=== PATIENT | female | born 2005 | race Caucasian/White ===

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

== ENCOUNTER 2023-02-28 23:08 | Emergency (ER) | payer MEDICAID ==
[~2023-02-28] VITALS: Ht 157.5 cm; Wt 65.6 kg
[~2023-02-28 23:08] MED LIST: HYDR50TA55 MT
[2023-02-28 23:35] VITALS: BP 125/76; PULSE 91; RESP 18; TEMP 99; O2SAT 99
[2023-03-01 00:18] LABS: CHLORIDE 109 mEq/L (98-107)
[2023-03-01 01:16] LABS: BASOPHILS % 0.8 % (0.0-2.0); EOSINOPHILS % 3.6 % (0.0-5.0); HEMATOCRIT. 38.2 % (36.0-48.0); LYMPHOCYTES % 25.5 % (20.0-50.0); MEAN CORPUSCULAR HEMOGLOBIN 28.3 pg (28.0-32.0); MEAN CORPUSCULAR VOLUME 82.9 fL (81.0-99.0); MEAN PLATELET VOLUME 10.3 fl (7.4-10.4); MONOCYTES % 9.5 % (2.0-8.0); NEUTROPHILS % 60.6 % (40.0-76.0); PLATELET 256 x1000/uL (130-400); RED CELL DISTRIBUTION WIDTH 13.8 % (11.6-14.6)
[2023-03-01 03:05] LABS: HCG SCREEN NEGATIVE
[2023-03-01 03:08] LABS: ETHANOL BLOOD < 10 mg/dL (-10)
[2023-03-01 04:43] LABS: CLARITY URINE CLEAR (CLEAR); COLOR URINE YELLOW (YELLOW); KETONES URINE NEGATIVE (NEGATIVE); LEUKOCYTE ESTERASE URINE NEGATIVE (NEGATIVE); NITRITE URINE NEGATIVE (NEGATIVE); OCCULT BLOOD URINE NEGATIVE (NEGATIVE); PROTEIN URINE NEGATIVE (NEGATIVE); SPECIFIC GRAVITY URINE 1.027 (1.005-1.030)
[2023-03-01 05:05] LABS: *AMPHETAMINES SCREEN URINE NEGATIVE (NEGATIVE); *BARBITURATES SCREEN URINE NEGATIVE (NEGATIVE); *BENZODIAZEPINES SCREEN URINE NEGATIVE (NEGATIVE); *COCAINE SCREEN URINE NEGATIVE (NEGATIVE); CANNABINOID URINE SCREEN NEGATIVE (NEGATIVE); METHADONE URINE SCREEN NEGATIVE (NEGATIVE); OPIATES URINE SCREEN NEGATIVE (NEGATIVE); PHENCYCLIDINE URINE SCREEN NEGATIVE (NEGATIVE)
== END 2023-03-01 05:04 | disposition left against medical advice (07) ==
LOC: ER 23:22
DX: R10.84 Generalized abdominal pain (principal); R11.2 Nausea with vomiting, unspecified; F41.9 Anxiety disorder, unspecified
CPT/HCPCS: 36415; 80053; 80305; 80320; 81003; 81025; 84703; 85025; 99283; G0480

== ENCOUNTER 2023-06-21 17:42 | Emergency (ER) | payer OTHER ==
[~2023-06-21] VITALS: Ht 157.5 cm; Wt 59.0 kg
[2023-06-21 17:58] VITALS: O2SAT 99
[2023-06-21 18:30] LABS: BASOPHILS % 0.7 % (0.0-2.0); EOSINOPHILS % 3.1 % (0.0-5.0); HEMATOCRIT. 40.8 % (36.0-48.0); HEMOGLOBIN. 13.7 g/dL (12.0-16.0); LYMPHOCYTES % 25.7 % (20.0-50.0); MEAN CORPUSCULAR HEMOGLOBIN 27.1 pg (28.0-32.0); MEAN CORPUSCULAR HGB CONC 33.7 g/dL (31.0-37.0); MEAN CORPUSCULAR VOLUME 80.4 fL (81.0-99.0); MEAN PLATELET VOLUME 9.4 fl (7.4-10.4); MONOCYTES % 10.6 % (2.0-8.0); NEUTROPHILS % 59.9 % (40.0-76.0); PLATELET 320 x1000/uL (130-400); RED BLOOD CELL COUNT 5.08 mill/uL (4.2-5.4); RED CELL DISTRIBUTION WIDTH 13.5 % (11.6-14.6); WHITE BLOOD COUNT 8.8 x1000/uL (4.5-11.0)
[2023-06-21] MEDS ORDERED: ONDANSETRON HCL 4MG TABLET PO ONE (18:30)
[2023-06-21 18:38] LABS: HCG SCREEN NEGATIVE
[2023-06-21 18:40] LABS: CALCIUM 8.5 mg/dL (8.5-10.1); INDEX HEMOLYSI 1 (1-3); INDEX ICTERIC 1 (1-4); INDEX LIPEMIC 1 (1-3)
[2023-06-21 19:07] LABS: CHLORIDE 109 mEq/L (98-107); POTASSIUM 3.5 mEq/L (3.5-5.1); SODIUM 140 mEq/L (136-145)
[2023-06-21 19:13] LABS: ALANINE AMINOTRANSFERASE 15 IU/L (13-61); ALBUMIN 4.2 g/dL (3.4-5.0); ASPARTATE AMINOTRANSFERASE 10 IU/L (15-37); BILIRUBIN TOTAL 0.6 mg/dL (0.1-1.0); CARBON DIOXIDE 25 mEq/L (21-32); CREATININE 0.8 mg/dL (0.6-1.3); GLUCOSE 86 mg/dL (70-105); PROTEIN TOTAL 8.1 g/dL (6.0-8.3); UREA NITROGEN BLOOD 9 mg/dL (7-21)
[2023-06-21] MEDS ORDERED: ONDA4TAB11 PO (20:39)
[2023-06-21] MEDS ORDERED: ONDANSETRON HCL 4MG TABLET PO NR (21:15)
[2023-06-21 21:28] VITALS: BP 122/78; PULSE 92; RESP 16; TEMP 98
== END 2023-06-21 21:28 | disposition home or self-care (01) ==
LOC: ER 18:25
DX: R10.13 Epigastric pain (principal); R11.2 Nausea with vomiting, unspecified; R07.89 Other chest pain; F41.9 Anxiety disorder, unspecified
CPT/HCPCS: 99285; 71045; 80053; 81025; 84703; 83690; 85025; 36415; 93005; Q0162

== ENCOUNTER 2023-08-18 15:34 | Emergency (ER) | payer OTHER ==
[~2023-08-18] VITALS: Ht 162.6 cm; Wt 58.0 kg
[~2023-08-18 15:34] MED LIST changes: +ONDA4TAB11 PO
[2023-08-18 15:47] VITALS: O2SAT 100
[2023-08-18] MEDS ORDERED: ACETAMINOPHEN 500MG TABLET PO ONE (16:45)
[2023-08-18 17:03] LABS: EOSINOPHILS % 2.1 % (0.0-5.0); HEMATOCRIT. 41.3 % (36.0-48.0); HEMOGLOBIN. 13.3 g/dL (12.0-16.0); LYMPHOCYTES % 22.1 % (20.0-50.0); MEAN CORPUSCULAR HEMOGLOBIN 26.9 pg (28.0-32.0); MEAN CORPUSCULAR HGB CONC 32.3 g/dL (31.0-37.0); MEAN CORPUSCULAR VOLUME 83.3 fL (81.0-99.0); MEAN PLATELET VOLUME 9.4 fl (7.4-10.4); MONOCYTES % 10.2 % (2.0-8.0); NEUTROPHILS % 64.6 % (40.0-76.0); PLATELET 300 x1000/uL (130-400); RED BLOOD CELL COUNT 4.96 mill/uL (4.2-5.4); RED CELL DISTRIBUTION WIDTH 13.4 % (11.6-14.6)
[2023-08-18 17:06] LABS: HCG SCREEN NEGATIVE
[2023-08-18 17:11] LABS: ALANINE AMINOTRANSFERASE < 7 IU/L (10-49); ALBUMIN 4.4 g/dL (3.2-4.8); ASPARTATE AMINOTRANSFERASE 13 IU/L (<34); BILIRUBIN TOTAL 0.5 mg/dL (0.1-1.0); CALCIUM 9.2 mg/dL (8.7-10.4); CARBON DIOXIDE 26 mEq/L (21-32); CHLORIDE 110 mEq/L (98-107); CREATININE 0.7 mg/dL (0.6-1.0); GLUCOSE 89 mg/dL (70-105); POTASSIUM 3.9 mEq/L (3.5-5.1); PROTEIN TOTAL 7.9 g/dL (6.0-8.3); SODIUM 140 mEq/L (136-145); UREA NITROGEN BLOOD 9 mg/dL (9-23)
[2023-08-18 18:44] VITALS: BP 112/73; PULSE 90; RESP 20; TEMP 98.1
[2023-08-18] MEDS ORDERED: ACETAMINOPHEN 500MG TABLET PO NR (18:45)
== END 2023-08-18 18:47 | disposition home or self-care (01) ==
LOC: ER 15:34
DX: R10.9 Unspecified abdominal pain (principal); R11.2 Nausea with vomiting, unspecified; F41.9 Anxiety disorder, unspecified
CPT/HCPCS: 36415; 76705; 80053; 81025; 84703; 85025; 99284

== ENCOUNTER 2023-12-05 23:37 | Emergency (ER) | payer OTHER ==
[~2023-12-05] VITALS: Ht 157.5 cm; Wt 64.0 kg
[2023-12-05 23:48] VITALS: TEMP 100; O2SAT 100
[2023-12-06] MEDS ORDERED: AMOX-494 MT (03:02)
[2023-12-06] MEDS: DEXAMETHASONE 2MG TABLET PO NR (03:17)
[2023-12-06 03:18] VITALS: BP 106/57; PULSE 70; RESP 12
[2023-12-06] MEDS: IBUPROFEN 600MG TABLET PO STA (03:18)
[2023-12-06] MEDS: DEXAMETHASONE 1MG TABLET PO ONE (03:31)
== END 2023-12-06 03:36 | disposition home or self-care (01) ==
LOC: ER 23:37
DX: J02.9 Acute pharyngitis, unspecified (principal); H92.01 Otalgia, right ear; R05.9 Cough, unspecified
CPT/HCPCS: 99283; 81025; J8540

== ENCOUNTER 2024-02-29 18:10 | Emergency (ER) | payer OTHER ==
[~2024-02-29] VITALS: Ht 165.1 cm; Wt 61.0 kg
[~2024-02-29 18:10] MED LIST changes: +AMOX-494 MT
[2024-02-29 18:26] VITALS: BP 107/70; PULSE 92; RESP 20; TEMP 98.2; O2SAT 100
[2024-02-29 18:57] LABS: BASOPHILS % 0.3 % (0.0-2.0); EOSINOPHILS % 1.6 % (0.0-5.0); HEMATOCRIT. 40.4 % (36.0-48.0); HEMOGLOBIN. 13.7 g/dL (12.0-16.0); LYMPHOCYTES % 9.2 % (20.0-50.0); MEAN CORPUSCULAR HEMOGLOBIN 27.6 pg (28.0-32.0); MEAN CORPUSCULAR HGB CONC 33.8 g/dL (31.0-37.0); MEAN CORPUSCULAR VOLUME 81.6 fL (81.0-99.0); MEAN PLATELET VOLUME 8.9 fl (7.4-10.4); MONOCYTES % 6.1 % (2.0-8.0); NEUTROPHILS % 82.8 % (40.0-76.0); PLATELET 261 x1000/uL (130-400); RED BLOOD CELL COUNT 4.95 mill/uL (4.2-5.4); RED CELL DISTRIBUTION WIDTH 13.8 % (11.6-14.6); WHITE BLOOD COUNT 7.4 x1000/uL (4.5-11.0)
[2024-02-29 19:03] LABS: CHLORIDE 104 mEq/L (98-107); POTASSIUM 3.2 mEq/L (3.5-5.1); SODIUM 138 mEq/L (136-145)
[2024-02-29 19:04] LABS: CARBON DIOXIDE 26 mEq/L (21-32)
[2024-02-29 19:05] LABS: CALCIUM 9.3 mg/dL (8.7-10.4)
[2024-02-29 19:09] LABS: CREATININE 0.7 mg/dL (0.6-1.0)
[2024-02-29 19:10] LABS: GLUCOSE 91 mg/dL (70-105); UREA NITROGEN BLOOD 9 mg/dL (9-23)
[2024-02-29 19:11] LABS: ALANINE AMINOTRANSFERASE 10 IU/L (10-49); ALBUMIN 4.9 g/dL (3.2-4.8); ASPARTATE AMINOTRANSFERASE 14 IU/L (<34)
[2024-02-29 19:12] LABS: BILIRUBIN DIRECT 0.5 mg/dL (<=3.0); BILIRUBIN TOTAL 1.2 mg/dL (0.1-1.0); PROTEIN TOTAL 7.6 g/dL (6.0-8.3)
[2024-02-29] MEDS ORDERED: ONDA4TAB50 PO (19:49)
[2024-02-29] MEDS: ONDANSETRON HCL 4MG TABLET PO ONE (20:10)
== END 2024-02-29 20:15 | disposition home or self-care (01) ==
LOC: ER 18:19
DX: R11.2 Nausea with vomiting, unspecified (principal); R10.84 Generalized abdominal pain; F41.9 Anxiety disorder, unspecified
CPT/HCPCS: 36415; 71045; 80048; 80076; 85025; 93005; 99285; Q0162

== ENCOUNTER 2024-08-14 15:38 | Emergency (ER) | payer OTHER, MEDICAID ==
[~2024-08-14] VITALS: Ht 157.5 cm; Wt 67.0 kg
[~2024-08-14 15:38] MED LIST changes: +ONDA-239 PO; -ONDA4TAB11 PO; +ONDA4TAB50 PO
[2024-08-14 16:05] VITALS: O2SAT 100
[2024-08-14] MEDS ORDERED: BENZ1LOZ73 MT (19:47)
[2024-08-14] MEDS ORDERED: IBUP-2029 MT (19:47)
[2024-08-14] MEDS: DEXAMETHASONE 10 MG/ML VIAL PO ONE (20:00)
[2024-08-14 21:35] VITALS: BP 113/78; PULSE 88; RESP 20; TEMP 37.11408; O2SAT 100
== END 2024-08-14 21:40 | disposition home or self-care (01) ==
LOC: ER 15:38
DX: J03.90 Acute tonsillitis, unspecified (principal); Z79.899 Other long term (current) drug therapy; Z20.822 Contact with and (suspected) exposure to COVID-19
CPT/HCPCS: 87804 ×2; 71045; 99284; 87426; J1100; Z7610

== ENCOUNTER 2025-01-01 21:02 | Emergency (ER) | payer MEDICAID, OTHER ==
[~2025-01-01] VITALS: Ht 157.5 cm; Wt 65.0 kg
[~2025-01-01 21:02] MED LIST changes: +BENZ1LOZ73 MT; +IBUP-2029 MT
[2025-01-01 21:10] VITALS: O2SAT 100
[2025-01-02] MEDS: CYCLOBENZAPRINE 10MG TABLET PO ONE (02:59)
[2025-01-02] MEDS: LIDOCAINE 5% PATCH TOP SCH (03:04)
[2025-01-02] MEDS: KETOROLAC 15MG/ML VIAL IM ONE (03:04)
[2025-01-02] MEDS ORDERED: CYCL5TAB3 MT (03:08)
[2025-01-02] MEDS ORDERED: NAPR-1176 MT (03:08)
[2025-01-02] MEDS ORDERED: LIDO-53 TP (03:08)
[2025-01-02 03:53] VITALS: BP 109/68; PULSE 74; RESP 19; TEMP 36.9; O2SAT 100
== END 2025-01-02 03:52 | disposition home or self-care (01) ==
LOC: ER 21:02
DX: M54.50 Low back pain, unspecified (principal); F41.9 Anxiety disorder, unspecified; F32.A Depression, unspecified; Z79.899 Other long term (current) drug therapy
CPT/HCPCS: 99283; 81025; 96372; J1885

== ENCOUNTER 2025-03-20 11:39 | Emergency (ER) | payer OTHER ==
[~2025-03-20] VITALS: Ht 157.5 cm; Wt 63.0 kg
[~2025-03-20 11:39] MED LIST changes: +CYCL5TAB3 MT; +LIDO-53 TP; +NAPR-1176 MT
[2025-03-20 11:56] VITALS: O2SAT 99
[2025-03-20] MEDS: KETOROLAC 30MG/ML VIAL IM ONE (12:21)
[2025-03-20] MEDS ORDERED: METH4TAB95 MT (13:36)
[2025-03-20] MEDS ORDERED: ACET-2708 MT (13:36)
[2025-03-20] MEDS: ACETAMINOPHEN 500MG TABLET PO ONE (13:51)
[2025-03-20 14:00] VITALS: BP 123/88; PULSE 75; RESP 16; TEMP 37.1; O2SAT 99
== END 2025-03-20 14:02 | disposition home or self-care (01) ==
LOC: ER 11:39
DX: G89.29 Other chronic pain (principal); M54.50 Low back pain, unspecified; F41.9 Anxiety disorder, unspecified; Z79.899 Other long term (current) drug therapy
CPT/HCPCS: 99283; 81025; 96372; J1885

== ENCOUNTER 2025-07-03 10:15 | Emergency (ER) | payer OTHER ==
[~2025-07-03] VITALS: Ht 157.5 cm; Wt 55.0 kg
[~2025-07-03 10:15] MED LIST changes: +ACET-2708 MT; +IBUP-1455 MT; -IBUP-2029 MT; +METH4TAB95 MT
[2025-07-03 10:21] VITALS: O2SAT 98
[2025-07-03 11:23] LABS: BASOPHILS % 0.6 % (0.0-2.0); EOSINOPHILS % 1.6 % (0.0-5.0); HEMATOCRIT. 42.8 % (36.0-48.0); HEMOGLOBIN. 14.3 g/dL (12.0-16.0); LYMPHOCYTES % 14.7 % (20.0-50.0); MEAN PLATELET VOLUME 11.1 fl (7.4-10.4); MONOCYTES % 5.3 % (2.0-8.0); NEUTROPHILS % 77.8 % (40.0-76.0); PLATELET 274 x1000/uL (130-400); RED BLOOD CELL COUNT 5.14 mill/uL (4.2-5.4); RED CELL DISTRIBUTION WIDTH 13.4 % (11.6-14.6)
[2025-07-03 11:33] LABS: CREATININE 0.8 mg/dL (0.6-1.0); UREA NITROGEN BLOOD 8 mg/dL (9-23)
[2025-07-03 11:35] LABS: ASPARTATE AMINOTRANSFERASE 12 IU/L (<34); BILIRUBIN DIRECT 0.4 mg/dL (<=3.0); BILIRUBIN TOTAL 1.0 mg/dL (0.1-1.0); PROTEIN TOTAL 7.9 g/dL (6.0-8.3)
[2025-07-03 11:42] LABS: HCG SCREEN NEGATIVE
[2025-07-03] MEDS: POTASSIUM CHLORIDE 20MEQ TABLET SR PO ONE (13:01)
[2025-07-03] MEDS ORDERED: ONDA-239 PO (14:54)
[2025-07-03] MEDS: MAGNESIUM/ALUMINUM HYDROXIDE/SIMETHICONE 30ML UDC PO ONE (15:34)
[2025-07-03 15:36] VITALS: BP 114/86; PULSE 89; RESP 16; TEMP 37; O2SAT 100
== END 2025-07-03 15:38 | disposition home or self-care (01) ==
LOC: ER 10:40
DX: R10.84 Generalized abdominal pain (principal); R11.2 Nausea with vomiting, unspecified; E87.6 Hypokalemia; F41.9 Anxiety disorder, unspecified; M51.27 Other intervertebral disc displacement, lumbosacral region; Z79.1 Long term (current) use of non-steroidal anti-inflammatories (NSAID)
CPT/HCPCS: 36415; 74176; 76830; 76856; 80048; 80076; 84703; 85025; 93976; 99284